=== PATIENT | female | born 1995 | race American Indian/Alaskan Native ===

== ENCOUNTER 2017-02-06 15:43 | Observation (INO) | payer OTHER ==
[2017-02-06 16:03] VITALS: TEMP 98.9
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
[2017-02-06] MEDS ORDERED: cefTRIAXone (Rocephin) 250 mg Inj IM STA (18:40)
[2017-02-06] MEDS ORDERED: cefTRIAXone (Rocephin) 250 mg Inj ONE (19:35)
[2017-02-06] MEDS ORDERED: Sterile Water 10 ML IV ONE (19:35)
[2017-02-06 19:50] VITALS: BP 119/72; PULSE 67; RESP 16; O2SAT 100
== END 2017-02-06 19:50 | disposition home or self-care (01) ==
LOC: H.ER 15:43 → H.EROBSV 16:04
PROVIDERS: ADMIT Emergency Medicine; ATTEND Emergency Medicine
DX: T74.21XA Adult sexual abuse, confirmed, initial encounter (principal)
CPT/HCPCS: 81025; 96372; 99284; G0378; J0696